=== PATIENT | female | born 1975 | race Caucasian/White ===

== ENCOUNTER 2017-06-13 09:45 | Observation (INO) | payer OTHER ==
[2017-06-15] MEDS ORDERED: LIDOCAINE 1% 2 ML INJ ID PRN (08:58)
[2017-06-15] MEDS ORDERED: LR 1,000 ML IV ONE (08:58)
[2017-06-15] MEDS ORDERED: BACITRACIN ZINC 14.2 GM OINTTUBE TP ONE (09:34)
[2017-06-15] MEDS ORDERED: LIDO/EPI 2%** Not for Epidural 20 ML MDV ONE (09:34)
[2017-06-15] MEDS ORDERED: LIDOCAINE 1% 300 MG/30 ML SDV ONE (09:55)
--- NOTE | 2017-06-15 10:01 | PDHPUP ---
History & Physical Update H&P update statement: This history and physical update is based on an assessment of the patient which was completed after admission or registration (within 24 hours), but prior to the surgery/procedure. H&P update: H&P reviewed & patient examined, no change in patient's condition since H&P completed (I again reviewed the surgery with the patinet and her spouse regarding lobectomy, and why we will not be doing a frozen section today as this test is inaccurate for follicular disease. In all likelihood, the mass will be benign.)
[2017-06-15] MEDS ORDERED: ceFAZolin 2 GM/DEXTROSE 100 ML IV ONE (10:02)
[2017-06-15] MEDS ORDERED: PROPOFOL/EMULSION 500 MG/50 ML BOTTLE IV ONE (10:10)
[2017-06-15] MEDS ORDERED: MIDAZOLAM 2 MG/2 ML VIAL ONE (10:10)
[2017-06-15] MEDS ORDERED: fentaNYL 100 MCG/2 ML INJ ONE (10:10)
[2017-06-15] MEDS: DEXAMETHASONE 4 MG/ML VIAL IVP SCH ×2 (10:15→22:22)
[2017-06-15] MEDS ORDERED: ceFAZolin 1 GM VIAL ONE (10:25)
[2017-06-15] MEDS ORDERED: SUGAMMADEX SODIUM 200 MG/2 ML VIAL IVP ONE (10:27)
[2017-06-15] MEDS ORDERED: LIDOCAINE 2% 5 ML SDV ONE (10:27)
[2017-06-15] MEDS ORDERED: DEXAMETHASONE 4 MG/ML VIAL ONE (10:27)
[2017-06-15] MEDS ORDERED: RANITIDINE 50 MG/2 ML VIAL ONE (10:27)
[2017-06-15] MEDS ORDERED: ROCURONIUM 50 MG/5 ML VIAL ONE (10:27)
[2017-06-15] MEDS ORDERED: METOCLOPRAMIDE 10 MG/2 ML VIAL ONE (10:27)
[2017-06-15] MEDS ORDERED: ONDANSETRON 4 MG/2 ML VIAL ONE (10:27)
[2017-06-15] MEDS ORDERED: ceFAZolin 2 GM/SWFI 2 GM/20 ML SYR IVP ONE (10:30)
--- NOTE | 2017-06-15 10:55 | PDANEPAE ---
ANE Past Medical History - Cardiovascular History Hx Hypertension: No Hx Arrhythmias: No Hx Chest Pain: No Hx Coronary Artery / Peripheral Vascular Disease: No Hx CHF / Valvular Disease: No Hx Palpitations: No - Pulmonary History Hx COPD: No Hx Asthma/Reactive Airway Disease: No Hx Recent Upper Respiratory Infection: No Hx Oxygen in Use at Home: No Hx Sleep Apnea: No Sleep Apnea Screening Result - Last Documented: Negative - Neurologic History Hx Cerebrovascular Accident: No Hx Seizures: No Hx Dementia: No - Endocrine History Endocrine History Comment: THYROID NODULES PAST 7 YRS - Renal History Hx Renal Disorders: No - Liver History Hx Hepatic Disorders: No - Neurological & Psychiatric Hx Hx Neurological and Psychiatric Disorders: No - Cancer History Hx Cancer: No - Congenital Disorder History Hx Congenital Disorders: No - GI History Hx Gastrointestinal Disorders: No - Other Health History Other Health History: ACNE LOCATED ON BACK USES DIURETIC TO ASSIST IN DRYING IT UP. TAKES MEDICATION FOR EYELASH GROWTH - Chronic Pain History Chronic Pain: No - Surgical History Prior Surgeries: MEHNAZ BREAST AUGMENTATION 2009 ANE Review of Systems Review of Systems: - Exercise capacity METS (RN): 5 METS ANE Patient History - Allergies Allergies/Adverse Reactions: No Known Allergies Allergy (Unverified 05/30/17 11:14) - Home Medications Home Medications: Bimatoprost [Latisse] 1 justyna EACHEYE Q7D 05/30/17 [Last Taken 06/13/17] Cyanocobalamin [Vitamin B12 (*)] 1,000 mcg PO DAILY 05/30/17 [Last Taken ] Multivitamins [Multivitamin (*)] 1 each PO DAILY 05/30/17 [Last Taken 06/12/17] Spironolactone [Aldactone 50 MG (RX)] 100 mg PO DAILY 05/30/17 [Last Taken 06/14] - NPO status NPO Since - Liquids (Date): 06/15/17 NPO Since - Liquids (Time): 06:45 NPO Since - Solids (Date): 06/14/17 NPO Since - Solids (Time): 22:30 - Smoking Hx Smoking Status: Never smoked ANE Labs/Vital Signs - Vital Signs Blood Pressure: 119/76 Heart Rate: 44 Respiratory Rate: 16 O2 Sat (%): 99 Height: 179.07 cm Weight: 67.132 kg ANE Physical Exam - Airway Neck exam: FROM Mallampati Score: Class 1 Mouth exam: normal dental/mouth exam - Pulmonary Pulmonary: no respiratory distress, no rales or rhonchi, clear to auscultation - Cardiovascular Cardiovascular: regular rate and rhythym, no murmur, rub, or gallop ANE Anesthesia Plan Anesthesia Plan: general endotracheal anesthesia
[2017-06-15] MEDS ORDERED: PROMETHAZINE HCL 25 MG/ML INJ IVP PRN (10:56)
[2017-06-15] MEDS ORDERED: METOCLOPRAMIDE 10 MG/2 ML VIAL IVP PRN (10:56)
[2017-06-15] MEDS ORDERED: MEPERIDINE 25 MG/ML SYR IVP PRN (10:56)
[2017-06-15] MEDS ORDERED: fentaNYL 100 MCG/2 ML INJ IVP PRN (10:56)
[2017-06-15] MEDS ORDERED: NALOXONE HCL 0.4 MG/ML INJ IVP PRN (10:56)
[2017-06-15] MEDS ORDERED: ONDANSETRON 4 MG/2 ML VIAL IVP PRN ×2 (10:56→12:18)
[2017-06-15] MEDS ORDERED: ALBUTEROL 3 ML DEYVIAL IH PRN (10:56)
[2017-06-15] MEDS ORDERED: LR 500 ML IV PRN (10:56)
--- NOTE | 2017-06-15 12:18 | POSTOPPROG ---
Post Op Note Date of Operation: 06/15/17 Surgeon: Gareth Mack Linen Keeper: Tor Mcqueen Anesthesiologist: Sharon Pre-op Diagnosis: Left thyroid mass Post-op Diagnosis: same Indication: Enlarging left thyroid mass Procedure: Left thyroid lobectomy Findings: 4x4x3 cm mass left thyroid. RLN and one parathyoid located Inf/Abcess present in the surg proc area at time of surgery?: No Depth: Organ Space EBL: Minimal Complications: none Drains: Lorne Servin (10 FR round silicone drain) Specimen(s): Left thyroid lobe
--- NOTE | 2017-06-15 12:40 | POSTANESTH ---
Post Anesthetic Evaluation Cardiovascular Status: Normal, Stable Respiratory Status: Normal, Stable Level of Consciousness/Mental Status: Can Participate in Eval Pain Control: Adequate, Prn Tx Ordered Nausea/Vomiting Control: Adequate, Prn Tx Ordered Complications Possibly Related to Anesthesia: None Noted
[2017-06-15] MEDS: D5W 1/2 NS W/ 20 KCl/L 1,000 ML IV SCH (15:08)
[2017-06-15] MEDS: OXYCODONE/APAP 5/325 TAB PO PRN ×2 (15:08→19:15)
--- NOTE | 2017-06-15 17:13 | SOAPPROG ---
SOAP Progress Note Assessment/Plan: Assessment: 42 year old female s/p left thyroidectomy. Doing well, minimal pain. Denies hoarse voice. No bleeding. Patient alert, afebrile, VSS. Plans to discharge tomorrow AM. 06/15/17 17:03 Objective: Vital Signs Temp Pulse Resp BP Pulse Ox 36.6 C 59 L 16 101/56 L 96 06/15/17 16:37 06/15/17 16:37 06/15/17 16:37 06/15/17 16:37 06/15/17 16:37 06/14/17 06/15/17 06/16/17 05:59 05:59 05:59 Intake Total 860 Output Total 10 Balance 850 ICD10 Worksheet Patient Problems: Problems Problem Status Onset Thyroid nodule Acute - ICD10 Problem Qualifiers (1) Thyroid nodule
--- NOTE | 2017-06-15 18:54 | GOP ---
[f rep st] OPERATIVE REPORT DATE OF OPERATION: 06/15/2017 SURGEON: Gareth Mack MD CHIEF CLERK SHELTER: Sathish Mcqueen. ANESTHESIA: General. PREOPERATIVE DIAGNOSIS: Left thyroid mass. POSTOPERATIVE DIAGNOSIS: Left thyroid mass. PROCEDURE PERFORMED: Left thyroid lobectomy. FINDINGS: An approximately 4 x 4 x 3 cm left thyroid mass. The recurrent laryngeal nerve was identif ied and preserved. The superior parathyroid gland was identified and preserved. I did not identify th e inferior parathyroid gland. SPECIMENS: Left thyroid lobe. ESTIMATED BLOOD LOSS: Less than 50 mL. INDICATIONS: The patient is a 42-year-old woman with an enlarging left thyroid mass. A previous need le biopsy revealed likely a benign process. However, the mass is enlarging in size and she presents f or resection for a definitive diagnosis and hopefully relief of compressive symptoms. DESCRIPTION OF PROCEDURE: The patient was taken to the OR, positively identified, placed on monitors and general anesthesia was induced. The patient was prepped and draped in the normal sterile fashion . An incision was marked outlying the anterior neck skin crease and infiltrated with 2.5 cc of 1% lid ocaine with 1:100,000 epinephrine. The skin was then sharply incised. Dissection was carried along a subplatysmal plane raising superior and inferior flaps, which were then secured with stay sutures. The strap muscles were divided in the midline and elevated on the left side of the thyroid itself. Th e superior vascular pedicle was then isolated, carefully using blunt dissection to push soft tissues superiorly to decrease potential inadvertent injury to the superior laryngeal nerve. The artery and v ein, once isolated, were clamped, cut, and ligated with a 2-0 silk stick tie. The dissection was then carried inferiorly along the thyroid capsule, dividing and ligating the middle thyroid vein. Blunt dissection was used to elevate the mass out of the incision as it was so large, that I was unab le to see inferiorly very well due to the volume of the lesion. At this point, I was able to isolate, clamp, cut and ligate an inferior vascular pedicle. The recurrent laryngeal nerve was then identifie d as was the superior parathyroid gland, which were both preserved. The dissection was carried along the trachea up to abraham's ligament, which was then divided, allowing the thyroid gland to be swept of f the trachea. The isthmus was then clamped, divided and oversewn with a 3-0 Vicryl suture. At this point, the speci men was sent for pathologic evaluation. The wound was irrigated with sterile saline. No signs of any bleeding were noted. A 10-[place] round silicone drain was placed through a separate stab incision and secured with a stitch. The incision was then closed with interrupted 4-0 Monocryl through the strap muscles, platysma and subcutaneous tissues and a running 5-0 Prolene through the skin followed by a p ressure dressing. The anesthetic was discontinued. She was extubated and taken to the postop care uni in good condition, having tolerated the procedure well. COMPLICATIONS: None. /[id number]/MODL
[2017-06-15 23:04] VITALS: RESP 16
[2017-06-16] MEDS ORDERED: BACITRACIN OINTMENT 1 PACKET TP ONE (00:34)
[2017-06-16] MEDS: OXYCODONE/APAP 5/325 TAB PO PRN ×2 (00:40→09:37)
[2017-06-16] MEDS: D5W 1/2 NS W/ 20 KCl/L 1,000 ML IV SCH (02:23)
[2017-06-16] MEDS: DEXAMETHASONE 4 MG/ML VIAL IVP SCH (05:10)
[2017-06-16 07:51] VITALS: BP 103/50; PULSE 54; TEMP 98.6; O2SAT 94
--- NOTE | 2017-06-16 12:47 | PDDCSUM ---
Discharge Summary Discharge Summary: 42 year old female POD 1 s/p left thyroid lobectomy for enlarging thyroid nodule admitted for surgery 06/15/17. She was then admitted for observation . She is doing well, denies pain or bleeding, voice is normal. Vital signs stable. MOISE drain output 45 mL in 24 hrs. No voice hoarseness noted. Incision C/I/D. No bleeding, hematoma, seroma noted. Drain removed, dressing replaced. She will follow up in clinic next week for suture removal.
== END 2017-06-16 10:02 | disposition home or self-care (01) ==
LOC: F3N 06-15 08:45 → F3E 06-15 13:07
PROVIDERS: ADMIT Otolaryngology; ATTEND Otolaryngology
PROC: 0GTG0ZZ Resection of Left Thyroid Gland Lobe, Open Approach (ICD-10-PCS; principal; 2017-06-15 09:45)
DX: E04.2 Nontoxic multinodular goiter (principal)
CPT/HCPCS: 60220; G0378; J0171; J0690; J1100; J2250; J2405; J2704; J2765; J2780; J3010